=== PATIENT | female | born 1945 | race Caucasian/White ===

== ENCOUNTER 2016-08-05 20:33 | Emergency (ER) | payer MEDICARE, BC ==
[~2016-08-05] VITALS: Ht 170.2 cm; Wt 81.8 kg
[~2016-08-05 20:33] MED LIST: ASPIRIN E.C. 8181 MG PO; ATORVASTATIN; B COMPLEX1 TA2 PO; CARDI-OMEGA1000 MG PO; LEVOXYL0.1 MG PO; LIPITOR 10MG10 MG PO; LOPRESSOR 225 MG/TAB PO; MOTRIN800 MG PO; MULTIVITAMIN1 TA1 PO; OSTEO-BI-FLEX 21 TAB PO; VICODIN 5/5001 UDTAB PO; VITAMIN C500 MG PO; osteo matrix PO
[2016-08-05 20:37] VITALS: TEMP 98.2
[2016-08-05] MEDS ORDERED: MUCINEX 60600 MG/TA1 PO (20:41)
[2016-08-05] MEDS ORDERED: BENADRYL25 M2 PO (20:42)
[2016-08-05 21:43] LABS: ADJUSTED CALCIUM 10.1 mg/dL (8.4-10.2); ALANINE AMINOTRANSFERASE 66 U/L (9-52); ALBUMIN 4.2 gm/dL (3.5-5.0); ALKALINE PHOSPHATASE 53 U/L (50-136); ANION GAP 14 mmol/L (7-16); BASO # 0.1 (0.0-0.2); BASO % 0.9 % (0.0-2.0); BILIRUBIN,TOTAL 0.9 mg/dL (0.0-1.0); BLOOD UREA NITROGEN 17 mg/dL (7-17); CALCIUM 10.3 mg/dL (8.4-10.2); CARBON DIOXIDE 22 mmol/L (22-30); CHLORIDE 102 mmol/L (98-107); CREATININE, serum 0.98 mg/dL (0.52-1.25); EOS # 0.2 (0.0-0.7); EOS % 3.1 % (0-4.0); GLUCOSE 122 mg/dL (74-106); GRAN # 3.1 (1.4-6.5); GRAN % 52.6 % (42.2-75.2); HEMATOCRIT 43.5 % (37.0-47.0); HEMOGLOBIN 14.8 g/dl (12.5-16.0); LYMPH # 1.8 (1.2-3.4); LYMPH % 30.8 % (20.0-51.0); MEAN CELL VOLUME 97 fl (80.0-100.0); MEAN CORPUSCULAR HEMOGLOBIN 33 pg (27.0-31.0); MEAN CORPUSCULAR HGB CONC 34 g/dl (33.0-37.0); MONO # 0.7 (0.1-0.6); MONO % 12.4 % (1.7-9.3); PLATELET COUNT 146 K/mm3 (130-400); POTASSIUM 4.1 mmol/L (3.4-5.0); RED BLOOD COUNT 4.51 M/mm3 (4.10-5.30); SODIUM 138 mmol/L (137-145); TOTAL PROTEIN 7.5 gm/dL (6.4-8.2); WHITE BLOOD COUNT 5.9 K/mm3 (4.8-10.8)
[2016-08-05 21:52] LABS: B-TYPE NATRIURETIC PEPTIDE 1350 pg/mL (0-125)
[2016-08-05 22:22] LABS: C-REACTIVE PROTEIN < 0.5 mg/dL (0.0-0.9)
[2016-08-05 23:16] LABS: INR 1.1 (0.8-3.0); PROTHROMBIN TIME 11.8 SECONDS (9.7-12.8)
[2016-08-05 23:18] LABS: PARTIAL THROMBOPLASTIN TIME 34.1 SECONDS (26.0-37.0)
[2016-08-05] MEDS ORDERED: LASIX 20MG TABL20 MG PO (23:22)
[2016-08-05 23:26] LABS: TROPONIN-I 0.027 ng/mL (0.000-0.034)
[2016-08-05 23:59] VITALS: BP 125/72; PULSE 69
== END 2016-08-06 | disposition home or self-care (01) ==
LOC: COL.ER 20:33
PROVIDERS: Emergency Medicine
DX: R05 Cough (principal); I50.9 Heart failure, unspecified; I44.7 Left bundle-branch block, unspecified; I42.2 Other hypertrophic cardiomyopathy
CPT/HCPCS: J1940; J2930; J7030

== ENCOUNTER → 2016-11-28 | Outpatient (CLI) | payer MEDICARE, BC ==
[~2016-11-28] MED LIST changes: +BENADRYL25 M2 PO; +LASIX 20MG TABL20 MG PO; +MUCINEX 60600 MG/TA1 PO
== END ==
LOC: MC.RAD 11-26 09:40
DX: Z12.31 Encounter for screening mammogram for malignant neoplasm of breast (principal)

== ENCOUNTER → 2017-12-11 | Outpatient (CLI) | payer MEDICARE, OTHER | LOC: MC.RAD 08:48 | DX: Z12.31 Encounter for screening mammogram for malignant neoplasm of breast (principal) ==

== ENCOUNTER → 2020-05-22 | Outpatient (RCR) | payer MEDICARE, OTHER | END | disposition home or self-care (01) | LOC: WSPT | DX: Z98.890 Other specified postprocedural states (principal) ==

== ENCOUNTER → 2020-07-07 | Outpatient (CLI) | payer MEDICARE, OTHER | LOC: MC.RAD 08:50 | DX: R92.2 Inconclusive mammogram (principal) ==

== ENCOUNTER 2020-08-15 09:00 | Outpatient (RCR) | payer MEDICARE, OTHER | END 2020-08-23 | disposition still patient (30) | LOC: WSPT | DX: Z98.890 Other specified postprocedural states (principal) ==

== ENCOUNTER 2020-10-12 13:00 | Outpatient (RCR) | payer MEDICARE, OTHER | END 2020-11-01 10:28 | disposition home or self-care (01) | LOC: WSPT 13:00 | DX: M75.121 Complete rotator cuff tear or rupture of right shoulder, not specified as traumatic (principal); M66.211 Spontaneous rupture of extensor tendons, right shoulder; M75.41 Impingement syndrome of right shoulder; Z47.89 Encounter for other orthopedic aftercare ==

== ENCOUNTER → 2021-08-07 | Outpatient (CLI) | payer MEDICARE, OTHER | LOC: MC.RAD 09:33 | DX: Z12.31 Encounter for screening mammogram for malignant neoplasm of breast (principal) ==

== ENCOUNTER 2022-06-04 12:47 | Outpatient (RCR) | payer MEDICARE, OTHER | END 2022-06-04 14:00 | disposition home or self-care (01) | LOC: WSPT 12:47 | DX: M70.61 Trochanteric bursitis, right hip (principal) ==

== ENCOUNTER 2022-06-11 21:42 | Emergency (ER) | payer MEDICARE, OTHER ==
[~2022-06-11] VITALS: Ht 165.1 cm; Wt 72.7 kg
[2022-06-11 21:53] VITALS: TEMP 98.8
[2022-06-11 22:00] LABS: BASO # 0.1 K/mm3 (0.0-0.2); BASO % 0.7 % (0.0-2.0); EOS # 0.2 K/mm3 (0.0-0.7); EOS % 2.2 % (0.0-4.0); GRAN # 4.1 K/mm3 (1.4-6.5); GRAN % 45.5 % (42.2-75.2); HEMATOCRIT 44.9 % (37.0-47.0); HEMOGLOBIN 15.3 g/dl (12.5-16.0); LYMPH # 3.7 K/mm3 (1.2-3.4); LYMPH % 41.6 % (20.0-51.0); MEAN CELL VOLUME 96 fl (80.0-100.0); MEAN CORPUSCULAR HEMOGLOBIN 33 pg (27-31); MEAN CORPUSCULAR HGB CONC 34 g/dl (33.0-37.0); MEAN PLATELET VOLUME 9.8 fl (7.4-10.4); MONO # 0.9 K/mm3 (0.1-0.6); MONO % 9.8 % (1.7-9.3); PLATELET COUNT 210 K/mm3 (130-400); RED BLOOD COUNT 4.69 M/mm3 (4.10-5.30); REDCELL DISTRIBUTION WIDTH-CV 12.6 % (11.5-14.5)
[2022-06-11 22:19] LABS: ALBUMIN 3.9 gm/dL (3.4-4.8); BILIRUBIN,TOTAL 0.3 mg/dL (0.2-1.2); C-REACTIVE PROTEIN 0.11 mg/dL (0.00-0.50); CALCIUM 10.4 mg/dL (8.4-10.2); CREATININE, serum 1.08 mg/dL (0.57-1.11); POTASSIUM 3.9 mmol/L (3.5-4.5); TOTAL PROTEIN 7.3 gm/dL (6.2-8.1)
[2022-06-12 00:50] VITALS: BP 133/65; PULSE 61
[2022-06-12] MEDS ORDERED: ZOFRAN ODT4 MG PO (00:52)
[2022-06-12] MEDS ORDERED: ANTIVERT 25MG25 MG PO (00:52)
== END 2022-06-12 01:28 | disposition home or self-care (01) ==
LOC: COL.ER 21:42
PROVIDERS: Emergency Medicine
DX: R11.2 Nausea with vomiting, unspecified (principal); R42 Dizziness and giddiness; Z28.310 Unvaccinated for COVID-19
CPT/HCPCS: J1200; J2405; J2550; J3360; J7030

== ENCOUNTER → 2023-10-14 | Outpatient (CLI) | payer MEDICARE, OTHER ==
[~2023-10-14] MED LIST changes: +ANTIVERT 25MG25 MG PO; +ZOFRAN ODT4 MG PO
== END ==
LOC: MC.RAD 15:40
DX: Z12.31 Encounter for screening mammogram for malignant neoplasm of breast (principal)